=== PATIENT | male | born 1955 | race Caucasian/White ===

== ENCOUNTER 2021-09-06 15:17 | Emergency (ER) | payer MEDICAID ==
[~2021-09-06] VITALS: Ht 195.6 cm; Wt 102.1 kg
[2021-09-06 15:31] VITALS: BP 162/94
[2021-09-06] MEDS ORDERED: CARB15DR12 EACH EAR (16:50)
--- NOTE | 2021-09-06 17:03 | NUR ---
Patient discharged to home in stable condition. Written and verbal after care instructions given. Patient verbalizes understanding of instruction.
== END 2021-09-06 17:03 | disposition home or self-care (01) ==
LOC: ER 15:19
DX: H61.22 Impacted cerumen, left ear (principal); Z60.2 Problems related to living alone

== ENCOUNTER 2021-09-12 21:02 | Emergency (ER) | payer MEDICAID ==
[~2021-09-12] VITALS: Ht 177.8 cm; Wt 77.1 kg
[~2021-09-12 21:02] MED LIST: CARB15DR12 EACH EAR
[2021-09-12 22:10] VITALS: BP 141/85
--- NOTE | 2021-09-12 22:51 | NUR ---
Patient discharged to home in stable condition. Written and verbal after care instructions given. Patient verbalizes understanding of instruction.
== END 2021-09-12 22:55 | disposition home or self-care (01) ==
LOC: ER 21:04
DX: H61.22 Impacted cerumen, left ear (principal); Z60.2 Problems related to living alone; Z79.899 Other long term (current) drug therapy

== ENCOUNTER 2021-10-05 20:04 | Emergency (ER) | payer MEDICARE, OTHER ==
[~2021-10-05] VITALS: Ht 198.1 cm; Wt 102.1 kg
[2021-10-05 20:41] VITALS: BP 150/80
[2021-10-05] MEDS ORDERED: CARB15DR12 EACH EAR (20:59)
--- NOTE | 2021-10-05 21:01 | NUR ---
Patient discharged to home in stable condition. Written and verbal after care instructions given. Patient verbalizes understanding of instruction.
== END 2021-10-05 21:09 | disposition home or self-care (01) ==
LOC: ER 20:07
DX: H61.22 Impacted cerumen, left ear (principal); Z60.2 Problems related to living alone; Z79.899 Other long term (current) drug therapy

== ENCOUNTER 2022-07-01 15:34 | Emergency (ER) | payer MEDICARE, OTHER ==
[~2022-07-01] VITALS: Ht 188 cm; Wt 97.5 kg
--- NOTE | 2022-07-01 15:45 | NUR ---
RECEIVED PT TRANSFER FROM [facility] PA[facility] IN BOTH EYS AWAKE PERIOD OF CONFUTION
[2022-07-01] MEDS ORDERED: FLUORESCEIN SODIUM OPHTH 1 EA STRIP OP ONE (16:00)
[2022-07-01] MEDS ORDERED: PROPARACAINE HCL OPHTH 15 ML BOTTLE LEFTEYE ONE (16:00)
--- NOTE | 2022-07-01 16:30 | NUR ---
EXAMINE BOTH EYES DONE AT BE SIDE BY DR. THOMAS
[2022-07-01] MEDS ORDERED: FLUORESCEIN SODIUM OPHTH 1 EA STRIP ONE (16:32)
[2022-07-01] MEDS ORDERED: PROPARACAINE HCL OPHTH 15 ML BOTTLE ONE (16:33)
[2022-07-01] MEDS ORDERED: CIPR5DRO LEFTEYE (17:03)
--- NOTE | 2022-07-01 17:35 | NUR ---
PT GOING BACK TO [facility] ROOM [id number] [facility] [id number]
--- NOTE | 2022-07-01 17:38 | NUR ---
CALLED [facility] FOR TRANSPORT ETA 45-60 MINS.
--- NOTE | 2022-07-01 18:00 | NUR ---
pt ambulate to [facility] NO COMPLAIN
--- NOTE | 2022-07-01 18:50 | NUR ---
Patient discharged to home in stable condition. Written and verbal after care instructions given. Patient verbalizes understanding of instruction. BACK to [facility]
--- NOTE | 2022-07-01 19:00 | NUR ---
Andres isabel in [facility] - 07/01/22 at 1906 by BRADY Patient discharged to home in stable condition. Written and verbal after care instructions given. Patient verbalizes understanding of instruction.
[2022-07-01 19:21] VITALS: BP 152/98
== END 2022-07-01 19:02 | disposition home or self-care (01) ==
LOC: ER 17:25
DX: H10.9 Unspecified conjunctivitis (principal); Z60.2 Problems related to living alone; Z79.899 Other long term (current) drug therapy